=== PATIENT | male | born 1990 ===

== ENCOUNTER 2018-11-13 16:21 | Outpatient (REF) | payer MEDICAID, SELFPAY ==
[2018-11-17 13:33] LABS: Chlamydia Result Negative; GC Result Negative
== END 2018-11-13 16:41 ==
LOC: NCHCN 16:21
PROVIDERS: PCP Internal Medicine; Visit Provider Internal Medicine
DX: R30.0 Dysuria (principal)
CPT/HCPCS: 87491; 87591; 87086